=== PATIENT | female | born 1945 | race Two or more races ===

== ENCOUNTER → 2024-10-14 | Outpatient (CLI) | payer MEDICARE, MEDICAID, SELFPAY ==
--- NOTE | 2024-10-14 | XR_ITS ---
Examination: PA lateral chest 2 views TECHNIQUE: Upright PA lateral chest 2 views Exam date and time: October 14, 2024 1434 hours INDICATIONS: Chronic coughing years FINDINGS: Normal heart size Increased AP dimension chest Linear scarring in the left lower lung zone No lobar pneumonia or pulmonary edema Severe osteopenia with kyphosis dorsal spine secondary to chronic osteoporotic wedging mid dorsal vertebral bodies IMPRESSION: COPD with moderate hyperexpansion No pneumonia or pulmonary edema
--- NOTE | 2024-10-14 13:50 | XR_ITS ---
Examination: Abdomen sonogram, complete Date and time of exam: October 14, 2024 1358 hours INDICATIONS: Left upper abdominal pain, tenderness in the lower abdomen and pelvic pain beginning one week ago. Technique: Multiple real-time grayscale transabdominal sonographic images of the abdomen have been obtained. Findings: Normal gallbladder Normal common bile duct 0.2 cm Pancreatic head 2.1 cm Aorta not enlarged Liver 14.2 cm fatty liver no focal liver lesions Normal hepatopedal portal venous flow Patent IVC Right kidney 10.2 x 3.9 x 4.5 cm cortex 1.1 cm Left kidney 9.8 x 5.1 x 5.4 cm renal cortex 1.3 cm Mild left hydronephrosis Moderate left renal parenchymal scar formation Spleen 7.7 cm IMPRESSION: Normal gallbladder Fatty liver Mild left hydronephrosis, moderate left renal parenchymal scar formation
== END | disposition home or self-care (01) ==
PROVIDERS: PCP Family Medicine; Referring Provider Nurse Practitioner Family; Visit Provider Nurse Practitioner Family
DX: J44.9 Chronic obstructive pulmonary disease, unspecified (principal); K76.0 Fatty (change of) liver, not elsewhere classified; N13.30 Unspecified hydronephrosis; N28.89 Other specified disorders of kidney and ureter
CPT/HCPCS: 71046; 76700

== ENCOUNTER → 2024-12-11 | Outpatient (CLI) | payer MEDICARE, MEDICAID, SELFPAY ==
--- NOTE | 2024-12-11 12:28 | XR_ITS ---
Examination: CT abdomen without intravenous contrast. Coronal 2-D reconstructions. Sagittal 2-D reconstructions. Date and time of exam:December 21, 2024 1233 hours INDICATIONS: Generalized abdominal pain several years COMPARISON: July 14, 2021 CTDI: vol (mGy): 8.38 DLP: (mGycm): 222 Technique: Axial images of the abdomen have been obtained, 3 mm slice thickness, without intravenous contrast 2-D sagittal coronal reconstructions Low dose protocols were performed. One or more of the following dose reduction techniques were used; automated exposure control, adjustment of the mA and/or KV according to patient size, use of iterative reconstruction technique. Findings: No focal liver or splenic lesions Contracted gallbladder No pancreatic or adrenal mass 1 mm left renal calculus Mild left hydronephrosis Abdominal aortic calcification no aneurysmal dilatation 18 mm fat-containing umbilical hernia IMPRESSION: Mild left hydronephrosis versus parapelvic cyst, recommend dedicated renal sonography follow-up
== END | disposition home or self-care (01) ==
PROVIDERS: PCP Nurse Practitioner Family; Referring Provider Nurse Practitioner Family; Visit Provider Nurse Practitioner Family
DX: N13.30 Unspecified hydronephrosis (principal)
CPT/HCPCS: 74150

== ENCOUNTER 2024-12-29 10:02 | Outpatient (RCR) | payer MEDICARE, MEDICAID, SELFPAY | END 2025-01-04 23:59 | disposition home or self-care (01) | LOC: CPTX 10:02 | PROVIDERS: PCP Nurse Practitioner Family; Referring Provider Nurse Practitioner Family; Visit Provider Nurse Practitioner Family | DX: Z53.8 Procedure and treatment not carried out for other reasons (principal) ==

== ENCOUNTER → 2025-01-01 | Outpatient (CLI) | payer MEDICARE, MEDICAID, SELFPAY ==
[2025-01-01 11:37] LABS: Basophils % (Auto) 1 % (0-2.5); Eosinophils # (Auto) 0.2 Thou/mm3 (0.0-0.5); Eosinophils % (Auto) 3 % (0-10); Hematocrit 41.8 % (36.0-46.0); Hemoglobin 13.7 g/dL (12.0-16.0); Immature Granulocytes % (Auto) 0 % (0-0); Immature Granulocytes Auto 0.01 Thou/mm3 (0.00-0.00); Lymphocytes # (Auto) 1.3 Thou/mm3 (1.0-4.8); Lymphocytes % (Auto) 23 % (10-50); Mean Corpuscular HGB Conc 32.8 g/dl (31.0-37.0); Mean Corpuscular Hemoglobin 29.7 pg (25.0-35.0); Mean Corpuscular Volume 91 fL (80-100); Monocytes # (Auto) 0.5 Thou/mm3 (0.0-0.8); Monocytes % (Auto) 10 % (0-12); Neutrophils # (Auto) 3.5 Thou/mm3 (1.8-7.7); Neutrophils % (Auto) 64 % (37-80); Nucleated Red Blood Cell % 0 /100 WBC (0); Platelet Count 312 Thou/mm3 (140-440); RDW Standard Deviation 46.5 fL (36.4-46.3); Red Blood Count 4.62 Miln/mm3 (4.00-5.20); White Blood Count 5.5 Thou/mm3 (3.6-11.0)
[2025-01-01 11:56] LABS: Glucose Estimated Average 103 mg/dL (80-131); Hemoglobin A1C 5.2 % Hgb (4.8-6.0)
[2025-01-01 12:09] LABS: Alanine Aminotransferase 17 U/L (10-49); Albumin, Serum 4.2 gm/dL (3.4-4.8); Albumin/Globulin Ratio 1.6 (1.2-2.2); Alkaline Phosphatase 92 U/L (46-116); Anion Gap 10 (7-16); Aspartate Amino Transferase 25 U/L (0-34); BUN/Creatinine Ratio 29 Ratio (12-20); Bilirubin,Total 0.9 mg/dL (0.3-1.2); Blood Urea Nitrogen 23 mg/dL (9-23); Calcium 9.4 mg/dL (8.3-10.6); Calcium (Corrected) 9.4 mg/dL (8.5-10.1); Carbon Dioxide 28.1 mMol/L (20.0-31.0); Cardiac Risk Estimate 3.9 RATIO (3.7-5.6); Chloride 103 mMol/L (98-107); Cholesterol 216 mg/dL (132-200); Creatinine (Component) 0.8 mg/dL (0.6-1.3); Free T4 (Free Thyroxine) 1.25 ng/dL (0.89-1.76); Globulin 2.7 gm/dL (2.3-3.5); Glucose 89 mg/dL (74-106); HDL Cholesterol 55 mg/dL (40-60); LDL Cholesterol,Calculated 135 mg/dL (0-130); Osmolality,Calculated 283 (275-295); Potassium 4.3 mMol/L (3.4-5.1); Sodium 141 mMol/L (136-145); Thyroid Stimulating Hormone 2.91 uIU/mL (0.55-4.78); Total Protein 6.9 gm/dL (5.7-8.2); Triglycerides 130 mg/dL (30-150); eGFR > 60 See Note
[2025-01-01 12:47] LABS: Folate > 24.00 ng/mL (>5.38); Hepatitis C Antibody Non Reactive (Non React); Vitamin B12 > 2000 pg/mL (211-911)
== END | disposition home or self-care (01) ==
PROVIDERS: PCP Family Medicine; Referring Provider Nurse Practitioner Family; Visit Provider Nurse Practitioner Family
DX: Z13.1 Encounter for screening for diabetes mellitus (principal); E78.2 Mixed hyperlipidemia; I10 Essential (primary) hypertension; R53.83 Other fatigue; Z11.59 Encounter for screening for other viral diseases; Z13.29 Encounter for screening for other suspected endocrine disorder
CPT/HCPCS: 36415; 80053; 80061; 82306; 82607; 82746; 83036; 84439; 84443; 85025; 86803

== ENCOUNTER → 2025-01-05 | Outpatient (CLI) | payer MEDICARE, MEDICAID, SELFPAY ==
--- NOTE | 2025-01-05 08:15 | XR_ITS ---
Examination: Retroperitoneal ultrasound, complete Technique: Multiple high resolution grayscale images of the retroperitoneum obtained, including kidneys and bladder. Exam date and time:January 05, 2025 0908 hours INDICATIONS: Pelvic pain beginning several years ago FINDINGS: Right kidney 10.6 cm renal cortex 2.5 cm Left kidney 10.0 cm renal cortex 2.1 cm Mild bilateral renal parenchymal scar formation Mild left hydronephrosis No bladder mass Bladder prevoid volume 358 cc IMPRESSION: Mild bilateral renal parenchymal scar formation Mild left hydronephrosis
== END | disposition home or self-care (01) ==
PROVIDERS: PCP Nurse Practitioner Family; Referring Provider Nurse Practitioner Family; Visit Provider Nurse Practitioner Family
DX: N28.89 Other specified disorders of kidney and ureter (principal); N13.30 Unspecified hydronephrosis
CPT/HCPCS: 76770

== ENCOUNTER → 2025-02-25 | Outpatient (BNVA) | payer MEDICARE, MEDICAID, SELFPAY | END | disposition home or self-care (01) | PROVIDERS: PCP Family Medicine; Referring Provider Family Medicine; Visit Provider Urology | DX: N39.0 Urinary tract infection, site not specified (principal); Z87.440 Personal history of urinary (tract) infections; N13.30 Unspecified hydronephrosis; E66.9 Obesity, unspecified; Z68.32 Body mass index [BMI] 32.0-32.9, adult; E78.00 Pure hypercholesterolemia, unspecified; I10 Essential (primary) hypertension | CPT/HCPCS: 51701; 81003; 99213; G0463 ==

== ENCOUNTER 2025-03-10 06:30 | Day surgery (SDC) | payer MEDICARE, MEDICAID, SELFPAY ==
--- NOTE | 2025-03-09 11:15 | EKG_ITS ---
[facility] Test Date: 2025-03-09 Pat Name: JAYY Grajedapartment: Room: - Gender: Female Supplier Engineer: NATHALIE : 1945 Requested By: Devonte Ibrahim Order Number: [id number] Reading MD: Devonte Ibrahim Measurements Intervals [place] Rate: 54 P: 41 WV: 163 QRS: -37 QRSD: 105 T: 27 QT: 413 QTc: 393 Interpretive Statements SINUS BRADYCARDIA MARKED LEFT AXIS DEVIATION [QRS AXIS < -30] S1-S2-S3 PATTERN, CONSISTENT WITH PULMONARY DISEASE, RVH, OR NORMAL VARIANT PATTERN CONSISTENT WITH PULMONARY DISEASE MINIMAL VOLTAGE CRITERIA FOR LVH, CONSIDER NORMAL VARIANT [MEETS CRITERIA IN ONE OF: R(aVL), S(V1), R(V5), R(V5/V6)+S(V1)] Compared to ECG 04/29/2024 11:13:36 Sinus rhythm no longer present Intraventricular conduction delay no longer present /store/S0/[id number]/[id number].pdf
[2025-03-09 11:23] VITALS: BMI 34.8
[2025-03-09 13:14] LABS: Alanine Aminotransferase 16 U/L (10-49); Albumin, Serum 4.2 gm/dL (3.4-4.8); Albumin/Globulin Ratio 1.6 (1.2-2.2); Alkaline Phosphatase 89 U/L (46-116); Anion Gap 11 (7-16); Aspartate Amino Transferase 25 U/L (0-34); BUN/Creatinine Ratio 31 Ratio (12-20); Bilirubin,Total 0.6 mg/dL (0.3-1.2); Blood Urea Nitrogen 25 mg/dL (9-23); Calcium 8.7 mg/dL (8.3-10.6); Calcium (Corrected) 8.7 mg/dL (8.5-10.1); Carbon Dioxide 27.7 mMol/L (20.0-31.0); Chloride 105 mMol/L (98-107); Creatinine (Component) 0.8 mg/dL (0.6-1.3); Estimated Creatinine Clearance 50.1 mL/min (>60); Globulin 2.6 gm/dL (2.3-3.5); Glucose 98 mg/dL (74-106); Osmolality,Calculated 291 (275-295); Potassium 4.3 mMol/L (3.4-5.1); Sodium 144 mMol/L (136-145); Total Protein 6.8 gm/dL (5.7-8.2); eGFR > 60 See Note
[2025-03-10] VITALS (9 sets, daily range): BP systolic 132–157; BP diastolic 62–80; PULSE 52–86; RESP 13–19; TEMP 36.2–36.8; O2SAT 96–99; BMI 34.9
--- NOTE | 2025-03-10 07:56 | XR_ITS ---
Examination: Left retrograde pyelogram with without KUB Fluoroscopy 6 spot fluoroscopic films of the abdomen Date and time: March 10, 2025 1020 hours INDICATIONS: Generalized abdominal pain several years, mild left hydronephrosis versus parapelvic cyst on CT abdomen pelvis December 11, 2024 TECHNIQUE AND FINDINGS: 6 spot fluoroscopic films of the abdomen Fluoroscopy 39 seconds 9.24 milligray radiation Mild visualization of the left calyces Partial visualization left ureteral stent satisfactory position IMPRESSION: Retrograde program as above
[2025-03-10] MEDS: ALBUTEROL RT 2.5 MG/3 ML NEBU INH (08:31)
[2025-03-10] MEDS: RINGERS LACTATED 1000 ML 1,000 ML 20 ML IV (08:34)
--- NOTE | 2025-03-10 10:23 | PD.SUROPNT ---
Date of Procedure 03/10/25 Pre Op Diagnosis Recurrent urinary tract infection, left hydronephrosis, status post bladder suspension operation Post Op Diagnosis Same plus very tight ureter not accommodating ureteroscope Procedure Cystoscopic examination left retrograde pyelogram left ureteroscopy placement of left ureteral stent in a retrograde fashion under fluoroscopic examination Findings Very tight and not accommodating ureter Procedure Description Indication for procedure this is a 79-year-old female she is seen in the urology office on consultation she has a history of recurrent urinary tract infection she is status post bladder suspension operation. She had ultrasound of the kidney which revealed left hydronephrosis. She was recommended above procedure rule out left ureteral stricture procedure and complications were discussed with the patient in great detail informed consent is obtained Patient was brought to the operating room in a satisfactory condition after appropriate premedication was put on the operating table in a supine position she was appropriately identified by surgeon operating room staff site and scope of the procedure were reconfirmed with the patient. General anesthesia was given uneventfully patient was positioned in a dorsal lithotomy position parts were prepped and draped in the usual sterile fashion 2% lidocaine was instilled into the urethra 21 Bauer cystoscope was introduced into the bladder per urethra. At this time patient received 20 mg of Lasix IV for diuresis as well as for prevention of pyelocalyceal infectious complication. Examination of bladder revealed no tumor stone or diverticula. Both ureteral orifices were identified they were effluxing clear urine. I passed a open-ended Pollick catheter into the left ureteral orifice and safety wire was introduced into the left collecting system I advanced the open-ended Pollick catheter up to proximal ureter retrograde pyelogram was performed this did not reveal any obstruction. Next I used semirigid ureteroscope. Passed through the left ureteral orifice ureter was very tight it was not accommodating. At this time I decided to place left ureteral stent, next I inserted 24 cm long 6 [place] proximal and in the upper pole calyx distal and in the bladder. Next bladder was emptied instrument was withdrawn gently. Patient disposition she is discharged home to be followed in urology office Anesthesia GETA Pathology / specimen None Estimated Blood Loss 0.5 Condition Stable Disposition PACU Surgeon Salima Melgar MD Surgical Staff Operation Date: 03/10/25 08:30 Case Staff Anesthesiologist: Brad Begum
--- NOTE | 2025-03-10 10:24 | SUR.PHASEI ---
1024 Patient arrived to recovery resting comfortably in [facility], drowsy and talking with staff, on oxygen 6L via oxy mask, breathing unlabored, vital signs stable, denies pain and nausea, report received from Hilton RN/Latisha BANUELOS and Dr. Begum
--- NOTE | 2025-03-10 11:40 | SUR.PHASEII ---
1140 Patient meets discharge criteria from recovery, awake and alert, breathing unlabored, vital signs stable, denies pain, eating ice chips; denies nausea, patient assisted with dressing into her clothing by this business writer, discharge instructions given to patient and patients son with the assistance of the telephone electric train driver Bindu ID#[id number], patients son signed discharge instructions. Patient given all her belongings prior to discharge, transported via wheelchair and left in a private vehicle.
== END 2025-03-10 11:40 | disposition home or self-care (01) ==
PROVIDERS: Anesthesiology; PCP Nurse Practitioner Family; Referring Provider Urology; Visit Provider Urology
PROC: 0TJB8ZZ Inspection of Bladder, Via Natural or Artificial Opening Endoscopic (ICD-10-PCS; CPT 52000; principal; 2025-03-10 08:30)
DX: N13.30 Unspecified hydronephrosis (principal); Z87.440 Personal history of urinary (tract) infections; Z01.810 Encounter for preprocedural cardiovascular examination
CPT/HCPCS: 52005; 36415; 74420; 80053; 93005; A4217; A4649; C1769; C1889; C1894; J1100; J1580; J1938; J2250; J2405; J2704; J3010; J3490; J7120; A9270

== ENCOUNTER → 2025-03-23 | Outpatient (BNVA) | payer MEDICARE, MEDICAID, SELFPAY | END | disposition home or self-care (01) | PROVIDERS: PCP Nurse Practitioner Family; Referring Provider Nurse Practitioner Family; Visit Provider Urology | DX: N13.30 Unspecified hydronephrosis (principal); Z96.0 Presence of urogenital implants; I10 Essential (primary) hypertension; E78.00 Pure hypercholesterolemia, unspecified; K21.9 Gastro-esophageal reflux disease without esophagitis | CPT/HCPCS: 52310; 81003; 96372; A4217; A4649; C1894; J1580; A9270 ==

== ENCOUNTER 2025-04-12 19:54 | Emergency (ER) | payer MEDICARE, MEDICAID, SELFPAY ==
[2025-04-12 20:33] VITALS: PULSE 96; RESP 20; O2SAT 96; BMI 32.3
[2025-04-12 21:25] VITALS: BP 183/75; PULSE 65; RESP 19; TEMP 36.8; O2SAT 97
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
== END 2025-04-13 00:54 | disposition home or self-care (01) ==
PROVIDERS: Emergency Provider Emergency Medicine; PCP Nurse Practitioner Family
DX: S00.03XA Contusion of scalp, initial encounter (principal); S13.4XXA Sprain of ligaments of cervical spine, initial encounter; S23.3XXA Sprain of ligaments of thoracic spine, initial encounter; S33.5XXA Sprain of ligaments of lumbar spine, initial encounter; Y04.0XXA Assault by unarmed brawl or fight, initial encounter; M41.85 Other forms of scoliosis, thoracolumbar region
CPT/HCPCS: 70450; 72072; 72100; 72125; 99284

== ENCOUNTER → 2025-06-22 | Outpatient (BNVA) | payer MEDICARE, MEDICAID, SELFPAY | END | disposition home or self-care (01) | PROVIDERS: PCP Nurse Practitioner Family; Referring Provider Nurse Practitioner Family; Visit Provider Urology | DX: N13.30 Unspecified hydronephrosis (principal); N28.1 Cyst of kidney, acquired; I10 Essential (primary) hypertension; E78.00 Pure hypercholesterolemia, unspecified; K21.9 Gastro-esophageal reflux disease without esophagitis | CPT/HCPCS: 81003; 99212; 99213; G0463 ==

== ENCOUNTER 2025-07-14 18:47 | Emergency (ER) | payer MEDICARE, MEDICAID, SELFPAY ==
[2025-07-14 18:48] VITALS: BMI 32.0
[2025-07-14 20:16] VITALS: BP 193/78; PULSE 68; RESP 16; TEMP 36.9; O2SAT 96
--- NOTE | 2025-07-14 20:29 | XR_ITS ---
EXAMINATION: PA chest single view TECHNIQUE: Upright PA chest single view Date and time: July,, 2121 hours INDICATIONS: Posterior chest pain elevated blood pressure today FINDINGS: Normal heart size No pneumonia or pulmonary edema Suspicious for basilar bronchitis Old healed fracture left clavicle Prominent osteopenia IMPRESSION: No lobar pneumonia or pulmonary edema Suspicious for basilar bronchitis
--- NOTE | 2025-07-14 20:29 | EKG_ITS ---
[facility] Test Date: 2025-07-14 Pat Name: JAYY Grajedapartment: Room: - Gender: Female Gold Plater: : 1945 Requested By: Danilo Nur Order Number: [id number] Reading MD: Danilo Nur Measurements Intervals [place] Rate: 61 P: 62 HI: 164 QRS: -29 QRSD: 114 T: 44 QT: 411 QTc: 417 Interpretive Statements SINUS RHYTHM BORDERLINE LEFT AXIS DEVIATION [QRS AXIS < -20] MODERATE INTRAVENTRICULAR CONDUCTION DELAY [110+ ms QRS DURATION] Compared to ECG 03/09/2025 12:13:56 Intraventricular conduction delay now present Sinus bradycardia no longer present Right ventricular hypertrophy no longer present /store/S0/[id number]/[id number]
--- NOTE | 2025-07-14 20:29 | XR_ITS ---
Examination: Venous duplex lower extremity sonogram, bilateral. Date and time of exam: July,, 2039 hours INDICATIONS: Leg swelling and pain beginning 5 months ago Technique: Multiple sonographic images of the deep venous system have been obtained. B-mode/2-D grayscale imaging of vascular structures and Doppler spectral analysis (waveforms) and color performed Both legs are examined. Findings: Deep venous systems do not demonstrate abnormal echogenicity. All visualized deep veins exhibit compressibility. All visualized deep veins exhibit augmentation. Impression: Negative for deep vein thrombosis
--- NOTE | 2025-07-14 20:30 | XR_ITS ---
Examination: CT brain head without contrast. 2-D sagittal coronal reconstructions Date and time of exam: July 14, 2025, 2101 hours INDICATIONS: Headache dizziness beginning 1 week ago CTDI: vol (mGy): 47.5 DLP: (mGycm): 954 Technique: Multiple CT axial sections of the brain have been obtained, 5 mm slice thickness. Contrast has not been administered. 2-D sagittal, coronal reconstructions have been obtained Low dose protocols were performed. One or more of the following dose reduction techniques were used; automated exposure control, adjustment of the mA and/or KV according to patient size, use of iterative reconstruction technique. Findings: No significant ventricular enlargement. Intra-axial or extra-axial hemorrhage density is not seen. No mass effect or midline shift Basal cisterns are not remarkable. Fourth ventricle is midline. Cranial vault intact. Impression: Negative for acute hemorrhage, mass effect or midline shift Advise clinical correlation and follow-up accordingly
--- NOTE | 2025-07-14 20:31 | EDNOTE_ITS ---
ED Headache RME/HPI General Chief Complaint: Headache Stated Complaint: HEADACHE, LEG SWELLING, BACK PAIN Time Seen by Provider: 07/14/25 19:06 Arrival date/time: 07/14/25 18:47 RME / HPI RME / HPI Narrative: 79-year-old female patient with significant history of COPD, hypertension hypercholesterolemia, came in for evaluation regarding multiple complaints. Patient complained of headache, for several days, posterior chest pain, not fe eling well, elevated blood pressure, and bilateral lower extremity swelling. Severity of symptoms moderate. Patient is ambulatory. Patient told me that he is worried due to elevated blood pressure. Despite taking amlodipine and losartan. Patient denies any recent trauma or fall. Denies any fever denies any cough. Denies any orthopnea or dyspnea exertion. Related Data Home Medications ?Medication ?Instructions ?Recorded ?Confirmed losartan 100 mg tablet 100 mg PO QDAY 07/14/2106/07 lovastatin 20 mg tablet 20 mg PO WSUPPER 07/14/21 amlodipine 5 mg tablet 5 mg PO QDAY 08/06/22 budesonide-formoterol HFA 160 2 inh inhalation BID 12/2906/22/25 mcg-4.5 mcg/actuation aerosol inhaler (Breyna) estradiol 0.01% (0.1 mg/gram) 2 g vaginal DIRECTED 06/22/25 06/22/25 vaginal cream (Estrace) Previous Rx's ?Medication ?Instructions ?Recorded tramadol 50 mg tablet 50 mg PO Q8H PRN pain #14 ta bs 03/10/25 naproxen 500 mg tablet (Naprosyn) 500 mg PO BID PRN pa in #10 tabs 04/13/25 Allergies Allergy/AdvReac Type Severity Reaction Status Date / Time No Known Allergies Allergy Verified 07/14/25 18:53 Review of Systems Review of Systems Narrative Review of Systems: Review of system reviewed and within normal limits except mentioned in HPI ED Exam Narrative Physical exam: VITAL SIGNS: Reviewed. GENERAL APPEARANCE: Alert and interactive, follows commands, no acute distress, HEAD AND FACE: Non-traumatic. ENT: PERRL, pink conjunctivitis, eyelid no trauma, Mucous membrane moist. NECK: Supple, nontender, no nuchal rigidity. CHEST: No tenderness, no crepitus, no paradoxical movement, no retractions. LUNGS: Clear, well ventilated, symmetric, no rales, no wheezing, no ronchi, no stridor, good breath sounds bilaterally. HEART: Regular rate, regular rhythm, no murmur, no gallops. ABDOMEN: Soft, positive bowel sounds, nondistended, no guarding, nontender, no rebound, no masses, RECTAL: Deferred. GENITAL: Deferred. NEUROLOGICAL: Gross motor function intact sensory function intact, Appropriate for age. MUSCULOSKELETAL: low back nontender, full range of motion. EXTREMITIES: Bilateral lower extremity edema and swelling, with tenderness to the calf muscle bilateral, full range of motion. SKIN: Color pink, dry, no rash, no lacerations, no abrasions, no contusions. LYMPHATICS: Deferred. Course Quality Measures none Orders Category Date Time Status EKG (ED ONLY) *Do not use* NOW Care 07/14/25 20:[address] head/brain wo con Stat Exams 07/14/25 20:30 Completed EKG (ED Only) Stat Exams 07/14/25 20:29 Draft US venous doppler LE BI Stat Exams 07/14/25 20:29 Completed XR chest 1V Stat Exams 07/14/25 20:29 Completed B-Type Natriuretic Peptide Stat Lab 07/14/25 21:17 Completed CBC Stat Lab 07/14/25 21:17 Completed Comprehensive Metabolic Panel Stat Lab 07/14/25 21:17 Completed Magnesium Stat Lab 07/14/25 21:17 Completed Partial Thromboplastin Time Stat Lab 07/14/25 21:17 Completed Troponin I Stat Lab 07/14/25 21:17 Completed Urinalysis, C/S if Indicated Stat Lab 07/14/25 20:51 Completed Acetaminophen Tab [Tylenol ES Tab] Med 07/14/25 20:30 Discontinued 1,000 mg PO X1 ONE hydrALAZINE HCL [Apresoline] Med 07/14/25 20:30 Discontinued 50 mg PO X1 ONE Vital Signs Vital signs: Vital Signs Temperature 98.4 F 07/14/25 20:16 Pulse Rate 68 07/14/25 20:16 Respiratory Rate 16 07/14/25 20:16 Blood Pressure 193/78 H 07/14/25 20:16 Pulse Oximetry (%) 96 07/14/25 20:16 Oxygen Delivery Method Room Air 07/14/25 20:16 Headache MDM Narrative MDM Narrative:: Patient's workup today all came back unremarkable including CT scan of the head. I personally reviewed and interpreted the x-ray of this patient. There is no acute abnormalities found, no infiltrates no pneumothorax no hemothorax normal chest x-ray. Review of other structures was without significant abnormal findings also. I additionally reviewed the radiologist report and agree with the interpretation. Urinalysis no UTI troponin is normal ultrasound of bilateral lower extremity negative for DVT EKG showed normal sinus rhythm, ventricular rate of 61 bpm, no ST segment elevation depression noted. Stable for discharge home Patient data External records reviewed:: None Clinical information provided by:: none Social determinants that could affect healthcare access:: none Patient has the following chronic illnesses:: Hypertension How is presenting disease/condition affected by chronic disease/condition?: exacerbated by Evaluation data The following diagnostics were reviewed and interpreted by me:: lab results, radiology exam(s) and EKG tracing(s) Lab and/or radiology exams considered but not ordered:: None Interpretation Summary: See results [facility] Medications / Prescriptions Medications or Prescriptions considered but not ordered:: None Medication administrations:: Medication Administration History Discontinued Medications Acetaminophen (Acetaminophen 500 Mg Tablet) 1,000 mg PO X1 ONE Stop: 07/14/25 20:31 Last Admin: 07/14/25 21:17 Dose: 1,000 mg Documented By: OA Hydralazine HCl (Hydralazine Hcl 25 Mg Tablet) 50 mg PO X1 ONE Stop: 07/14/25 20:31 Last Admin: 07/14/25 21:16 Dose: 50 mg Documented By: OA Hydralazine and Tylenol Consultations Consultation(s) initiated? (list below): No Diagnosis Differential diagnosis headache: migraine, headache and sinusitis Most likely diagnosis given after review of the tests above:: Leg swelling, headache posterior chest pain muscular Admission Indicated Admission indicated?: not indicated Admission Request Was there a request for admission?: No Disposition Plan Disposition Plan: Discharge Discharge Attestation Discharge Attestation: The patient was given an opportunity to ask questions and understood the discharge instructions. Discharge instructions specifically effects, indication s for sooner follow up or return to the emergency department, and the expected course of current diagnosis. Patient condition: Stable Discharge Plan Plan Patient Disposition: HOME (Self Care) Discharge Disposition comment: Stable Prescriptions/Referrals Prescriptions/Med Rec: No Action estradiol [Estrace] 0.01 % (0.1 mg/gram) cream 2 g vaginal DIRECTED Patient Comments: Twice a week lovastatin 20 mg Tablet 20 mg PO WSUPPER losartan 100 mg Tablet 100 mg PO QDAY amlodipine 5 mg tablet 5 mg PO QDAY Rx Instructions: as needed naproxen [Naprosyn] 500 mg tablet 500 mg PO BID PRN (Reason: pain) Qty: 10 0RF budesonide-formoterol [Breyna] 160-4.5 mcg/actuation HFA aerosol inhaler 2 inh inhalation BID tramadol 50 mg tablet 50 mg PO Q8H PRN (Reason: pain) Qty: 14 0RF Referrals: Malinda Perez FNP-C [Primary Care Provider] - In 1 week Problem List Clinical Impression: Headache, Chest pain, muscular, Leg swelling Patient/Caregiver Discharge Instructions Discharge Activity: activity as tolerated Education Materials: ED Leg Swelling in Both Legs Additional Instructions: Thank you for the opportunity for serving you today. You are stable for discharged . You are advised to: Follow-up with your PCP in 1 to 2 days Return to ED for worsening of symptoms You may take Tylenol or Motrin as needed Take medication as prescribed by your PCP Print Language: Bulgarian Stand Alone Forms: Kristi Award Info., Patient Portal Info Letter JOHN/YONI Supervising Physician JOHN/YONI Supervising Physician: MD Ny
[2025-07-14 21:03] LABS: Collection Type, Urine Clean Catch
[2025-07-14 21:09] LABS: Bilirubin,Urine Negative (Negative); Blood,Urine Negative (Negative); Clarity,Urine Clear (Clear/Hazy); Color,Urine Colorless (Lt Yel-Yel); Culture Indicated,Urine Not Indicated; Glucose, Urine Negative (Negative); Ketones,Urine Negative (Negative); Leukocyte Esterase,Urine Positive (Negative); Nitrite,Urine Negative (Negative); PH,Urine 6.5 (5.0-7.0); Protein,Urine Negative (Neg - Trace); RBC,Urine < 1 /hpf (0-3); Specific Gravity,Urine 1.007 (1.001-1.035); Squamous Epithelial Cell,Urine 1 /hpf (0-5); Urobilinogen,Urine Negative mg/dL (0.0-1.0); WBC,Urine 3 /hpf (0-5)
[2025-07-14 21:16] VITALS: BP 193/78; PULSE 68
[2025-07-14] MEDS: ACETAMINOPHEN 500 MG TABLET 1000 MG PO (21:17)
[2025-07-14 21:53] LABS: Basophils # (Auto) 0.1 Thou/mm3 (0.0-0.2); Basophils % (Auto) 1 % (0-2.5); Eosinophils # (Auto) 0.2 Thou/mm3 (0.0-0.5); Eosinophils % (Auto) 3 % (0-10); Hematocrit 41.9 % (36.0-46.0); Hemoglobin 13.9 g/dL (12.0-16.0); Immature Granulocytes Auto 0.02 Thou/mm3 (0.00-0.00); Lymphocytes # (Auto) 1.4 Thou/mm3 (1.0-4.8); Lymphocytes % (Auto) 20 % (10-50); Mean Corpuscular HGB Conc 33.2 g/dl (31.0-37.0); Mean Corpuscular Hemoglobin 29.4 pg (25.0-35.0); Mean Corpuscular Volume 89 fL (80-100); Monocytes # (Auto) 0.6 Thou/mm3 (0.0-0.8); Monocytes % (Auto) 8 % (0-12); Neutrophils # (Auto) 4.9 Thou/mm3 (1.8-7.7); Neutrophils % (Auto) 68 % (37-80); Nucleated Red Blood Cell # 0.00 Thou/mm3 (0.00-0.00); Nucleated Red Blood Cell % 0 /100 WBC (0); Platelet Count 290 Thou/mm3 (140-440); RDW Standard Deviation 44.0 fL (36.4-46.3); Red Blood Count 4.72 Miln/mm3 (4.00-5.20); White Blood Count 7.2 Thou/mm3 (3.6-11.0)
[2025-07-14 22:07] LABS: B-Type Natriuretic Peptide 71 pg/mL (0-100)
[2025-07-14 22:09] LABS: Alanine Aminotransferase 13 U/L (10-49); Albumin, Serum 4.6 gm/dL (3.4-4.8); Albumin/Globulin Ratio 1.5 (1.2-2.2); Alkaline Phosphatase 98 U/L (46-116); Anion Gap 11 (7-16); Aspartate Amino Transferase 26 U/L (0-34); BUN/Creatinine Ratio 19 Ratio (12-20); Bilirubin,Total 0.6 mg/dL (0.3-1.2); Blood Urea Nitrogen 15 mg/dL (9-23); Calcium 9.8 mg/dL (8.3-10.6); Calcium (Corrected) 9.8 mg/dL (8.5-10.1); Carbon Dioxide 23.4 mMol/L (20.0-31.0); Chloride 107 mMol/L (98-107); Creatinine (Component) 0.8 mg/dL (0.6-1.3); Estimated Creatinine Clearance 52.2 mL/min (>60); Globulin 3.1 gm/dL (2.3-3.5); Glucose 85 mg/dL (74-106); Magnesium 2.2 mg/dL (1.6-2.6); Osmolality,Calculated 281 (275-295); Potassium 4.2 mMol/L (3.4-5.1); Sodium 141 mMol/L (136-145); Total Protein 7.7 gm/dL (5.7-8.2); Troponin I < 0.020 ng/mL (0.0-0.045); eGFR > 60 See Note
[2025-07-14 22:11] LABS: Partial Thromboplastin Time 29.6 Seconds (22.0-36.0)
[2025-07-14 23:29] VITALS: BP 150/70; PULSE 66; RESP 18; O2SAT 96
== END 2025-07-14 23:30 | disposition home or self-care (01) ==
PROVIDERS: Nurse Practitioner Family; Emergency Provider Emergency Medicine; PCP Nurse Practitioner Family
DX: R51.9 Headache, unspecified (principal); R07.9 Chest pain, unspecified; M79.89 Other specified soft tissue disorders; I10 Essential (primary) hypertension; E78.00 Pure hypercholesterolemia, unspecified
CPT/HCPCS: 36415; 70450; 71045; 80053; 81001; 83735; 83880; 84484; 85025; 85730; 93970; 99284; A9270